=== PATIENT | male | born 1975 | race Caucasian/White ===

== ENCOUNTER 2016-04-30 16:41 | Emergency (ER) | payer OTHER ==
[2016-04-30 20:38] LABS: BASOPHIL 0.2 % (0-2); EOSINOPHIL 1.3 % (0-5); HCT 47.4 % (42.0-52.0); HGB 15.9 g/dl (13.2-18.0); LYMPHOCYTE 19.5 % (15-48); MCH 27.8 pg (25.0-31.0); MCHC 33.5 g/dL (32.0-36.0); MONOCYTE 4.7 % (0-12); MPV 10.4 fL (6.0-9.5); NEUTROPHIL 74.3 % (41-80); PLT 298 K/uL (150-400); RBC 5.71 M/uL (4.70-6.00); RDW 14.1 % (11.5-14.0); WBC 12.6 K/uL (4.0-10.5)
[2016-04-30 20:48] LABS: INR 1.04 (0.9-1.2); PROTHROMBIN TIME 13.2 SECONDS (11.7-14.0); PTT 26.6 SECONDS (23.2-31.4)
[2016-04-30 20:58] LABS: CKMB 1.95 ng/mL (0.97-4.94); MYOGLOBIN 104 ng/mL (26-65); PRO-BNP 39 pg/mL (0-125); TROPONIN T < 0.010 ng/mL
[2016-04-30 21:04] LABS: ALBUMIN 4.6 g/dL (3.5-5.0); BILIRUBIN - TOTAL 0.6 mg/dL (0.1-1.0); CREATININE 1.2 mg/dL (0.7-1.2); GLOBULIN (CALCULATION) 3.2 g/dL (2.2-4.2); MAGNESIUM 2.02 mg/dL (1.40-2.10); POTASSIUM 3.8 mmol/L (3.5-5.1); TOTAL PROTEIN 7.8 g/dL (6.4-8.3)
== END 2016-04-30 22:32 | disposition home or self-care (01) ==
LOC: FER 16:41
PROVIDERS: Emergency Medicine Emergency Medical Services
DX: K80.20 Calculus of gallbladder without cholecystitis without obstruction (principal); R07.9 Chest pain, unspecified; I10 Essential (primary) hypertension; E66.9 Obesity, unspecified; F17.210 Nicotine dependence, cigarettes, uncomplicated; Z79.82 Long term (current) use of aspirin; Z79.899 Other long term (current) drug therapy
CPT/HCPCS: 36415; 71010; 76705; 80053; 82150; 82550; 82553; 83690; 83735; 83874; 83880; 84484; 85025; 85610; 85730; 93005

== ENCOUNTER 2016-05-13 15:30 | Emergency (ER) | payer OTHER ==
[2016-05-13 16:52] LABS: BASOPHIL 0.2 % (0-2); HGB 14.8 g/dl (13.2-18.0); LYMPHOCYTE 17.7 % (15-48); MCH 28.1 pg (25.0-31.0); MCHC 33.6 g/dL (32.0-36.0); MCV 83.7 fL (78.0-100.0); MONOCYTE 4.2 % (0-12); MPV 10.7 fL (6.0-9.5); NEUTROPHIL 76.9 % (41-80); PLT 284 K/uL (150-400); RBC 5.26 M/uL (4.70-6.00); RDW 14.3 % (11.5-14.0)
[2016-05-13 17:05] LABS: INR 1.01 (0.9-1.2); PROTHROMBIN TIME 12.9 SECONDS (11.7-14.0); PTT 27.8 SECONDS (23.2-31.4)
[2016-05-13 17:13] LABS: ALBUMIN 4.1 g/dL (3.5-5.0); BILIRUBIN - TOTAL 0.7 mg/dL (0.1-1.0); GLOBULIN (CALCULATION) 3.5 g/dL (2.2-4.2); MAGNESIUM 1.84 mg/dL (1.40-2.10); TOTAL PROTEIN 7.6 g/dL (6.4-8.3)
[2016-05-13 17:16] LABS: CKMB 1.18 ng/mL (0.97-4.94); MYOGLOBIN 50 ng/mL (26-65); PRO-BNP 123 pg/mL (0-125); TROPONIN T < 0.010 ng/mL
== END 2016-05-13 18:24 | disposition home or self-care (01) ==
LOC: FER 15:30
PROVIDERS: Emergency Medicine
DX: F41.1 Generalized anxiety disorder (principal); I10 Essential (primary) hypertension; E03.9 Hypothyroidism, unspecified; F17.200 Nicotine dependence, unspecified, uncomplicated; Z79.82 Long term (current) use of aspirin; Z79.899 Other long term (current) drug therapy
CPT/HCPCS: 36415; 71010; 80053; 82550; 82553; 83735; 83874; 83880; 84443; 84484; 85025; 85610; 85730; 93005

== ENCOUNTER → 2016-07-01 | Day surgery (SDC) | payer OTHER ==
[2016-06-30 10:55] LABS: HGB 14.3 g/dl (13.2-18.0); MCH 27.9 pg (25.0-31.0); MCHC 33.3 g/dL (32.0-36.0); RBC 5.12 M/uL (4.70-6.00); RDW 14.6 % (11.5-14.0); WBC 9.3 K/uL (4.0-10.5)
--- NOTE | 2016-06-30 10:59 | NUR ---
DUE TO PT COMORBIDITIES AND BMI, TUSHAR, HOME O2, I REQUESTED PT BE SEEN AT PREOP VISIT BY ANESTHESIA. NOHELIA IN TO SEE PT AND HE REQUESTED DR COBOS SEE PT. DR COBOS IN TO SEE PT AT PRE OP VISIT.
[2016-06-30 11:09] LABS: ALBUMIN 3.6 g/dL (3.5-5.0); BILIRUBIN - TOTAL 0.5 mg/dL (0.1-1.0); GLOBULIN (CALCULATION) 3.5 g/dL (2.2-4.2); POTASSIUM 3.7 mmol/L (3.5-5.1); TOTAL PROTEIN 7.1 g/dL (6.4-8.3)
== END | disposition home or self-care (01) ==
LOC: FAS 08:25
PROVIDERS: Surgery
DX: K81.1 Chronic cholecystitis (principal); E03.9 Hypothyroidism, unspecified; F17.210 Nicotine dependence, cigarettes, uncomplicated; I10 Essential (primary) hypertension; E66.01 Morbid (severe) obesity due to excess calories; G47.33 Obstructive sleep apnea (adult) (pediatric); Z79.82 Long term (current) use of aspirin; Z79.899 Other long term (current) drug therapy; Z99.81 Dependence on supplemental oxygen; Z98.890 Other specified postprocedural states
CPT/HCPCS: 36415; 80053; 88304; 93005; J0690; J1170; J1885; J2405; J2704; J3010; Q9962

== ENCOUNTER 2020-07-28 17:13 | Emergency (ER) | payer OTHER ==
[2020-07-28 18:07] LABS: BASOPHIL 0.3 % (0-2); EOSINOPHIL 0.7 % (0-5); HCT 45.5 % (42.0-52.0); HGB 14.9 g/dl (13.2-18.0); LYMPHOCYTE 14.9 % (15-48); MCHC 32.7 g/dL (32.0-36.0); MCV 85.4 fL (78.0-100.0); MONOCYTE 4.6 % (0-12); MPV 10.3 fL (6.0-9.5); NEUTROPHIL 79.2 % (41-80); NRBC 0; PLT 304 K/uL (150-400); RBC 5.33 M/uL (4.70-6.00); RDW 14.6 % (11.5-14.0); WBC 11.3 K/uL (4.0-10.5)
[2020-07-28 18:11] LABS: INR 1.06 (0.9-1.2); PROTHROMBIN TIME 13.1 SECONDS (11.4-13.6); PTT 28.6 SECONDS (22.2-34.7)
[2020-07-28 18:18] LABS: ALBUMIN 3.3 g/dL (3.4-5.0); BILIRUBIN - TOTAL 0.5 mg/dL (0.2-1.0); BUN/CREAT RATIO (CALC) 13.7 RATIO; CREATININE 1.17 mg/dL (0.67-1.17); GLOBULIN (CALCULATION) 4.6 g/dL; TOTAL PROTEIN 7.9 g/dL (6.4-8.2)
[2020-07-28] MEDS ORDERED: CARAFATE1 GM PO (21:16)
[2020-07-28] MEDS ORDERED: PROTONIX 40MG T40 MG PO (21:16)
== END 2020-07-28 21:35 | disposition home or self-care (01) ==
LOC: FER 17:13
PROVIDERS: Emergency Medicine
DX: K21.9 Gastro-esophageal reflux disease without esophagitis (principal); I10 Essential (primary) hypertension
CPT/HCPCS: 36415; 71045; 80053; 83690; 84484; 85025; 85610; 85730; 87339; 93005